=== PATIENT | male | born 1995 | race Caucasian/White ===

== ENCOUNTER 2017-06-09 11:49 | Emergency (ER) | payer MEDICAID ==
[2017-06-09] MEDS ORDERED: HALOPERIDOL LACT 5 MG/ML INJ IVP ONE (12:00)
[2017-06-09] MEDS ORDERED: HALOPERIDOL LACT 5 MG/ML INJ ONE (12:00)
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
[2017-06-09 12:11] LABS: PLATELET COUNT 387 10^3/uL (150-400)
[2017-06-09 12:28] LABS: CREATINE KINASE 272 IU/L (0-224)
[2017-06-09] MEDS ORDERED: NS 1,000 ML IV ONE (13:14)
[2017-06-09] MEDS ORDERED: diphenhydrAMINE 50 MG CAP PO ONE (23:47)
[2017-06-09] MEDS ORDERED: diphenhydrAMINE 25 MG CAP PO ONE (23:49)
[2017-06-10] MEDS ORDERED: LORazepam 1 MG TAB PO ONE (02:24)
[2017-06-10 09:35] VITALS: BP 130/53
== END 2017-06-10 09:34 | disposition home or self-care (01) ==
DX: R45.851 Suicidal ideations (principal); F32.2 Major depressive disorder, single episode, severe without psychotic features; G82.20 Paraplegia, unspecified; T83.510A Infection and inflammatory reaction due to cystostomy catheter, initial encounter; Y73.2 Prosthetic and other implants, materials and accessory gastroenterology and urology devices associated with adverse incidents
CPT/HCPCS: 80305; 96374; G0480; J1630

== ENCOUNTER 2018-04-04 15:57 | Inpatient (IN) | payer MEDICAID, OTHER ==
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
[2018-04-04] MEDS ORDERED: TDAP ADULT 0.5 ML INJ (BOOSTRIX) IM ONE (17:29)
[2018-04-04 17:59] LABS: PLATELET COUNT 392 10^3/uL (150-400)
[2018-04-04] MEDS ORDERED: ceFAZolin 2 GM/DEXTROSE 100 ML IV ONE (18:11)
[2018-04-04] MEDS ORDERED: HYDROCODONE/APAP 5/325 TAB PO PRN (18:40)
[2018-04-04] MEDS ORDERED: IBUPROFEN 200 MG TAB PO PRN (18:40)
[2018-04-04] MEDS ORDERED: ACETAMINOPHEN 325 MG TAB PO PRN (18:40)
[2018-04-04] MEDS ORDERED: ONDANSETRON DISINTEGRATING 4 MG TAB PO PRN (18:40)
[2018-04-04] MEDS ORDERED: HYDROmorphONE/DILAUDID 1 MG/ML INJ IVP PRN (18:40)
[2018-04-04] MEDS ORDERED: ONDANSETRON 4 MG/2 ML VIAL IVP PRN (18:40)
[2018-04-04] MEDS ORDERED: NS 1,000 ML IV SCH (18:45)
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
[2018-04-04] MEDS ORDERED: POLYETHYLENE GLYCOL 3350 17 GM PKT PO PRN (19:57)
[2018-04-04] MEDS ORDERED: SENNOSIDES/DOCUSATE SODIUM TAB PO PRN (19:57)
[2018-04-04] MEDS: BACLOFEN 10 MG TAB PO SCH (21:59)
[2018-04-05] MEDS: ceFAZolin 2 GM/DEXTROSE 100 ML IV SCH ×3 (02:36→18:37)
[2018-04-05 05:57] LABS: PLATELET COUNT 465 10^3/uL (150-400)
--- NOTE | 2018-04-05 11:18 | ASMTCMCOM ---
CM Note CM Note Notes: 04/05/2018 Case Management Note Pt admitted for toe ischemia and cellulitis. Met w/pt to discuss discharge needs. Per pt, pt resides at [facility]. Faxed updates via [employer]. Provided Ombudsman information at pt request. Referred to [facility]. Left VM for Heather Mattson [facility] for behavioral health needs as well as PCP. Pt lists Aunt Christine as primary contact [phone]. Pt father Gustavo Hanson [phone] is involved in cares as well. Case Management d/c poc: return to [facility] Case Management to follow. Date Signed: 04/05/2018 11:17 AM Electronically Signed By:Carol Ann Fritz RN
[2018-04-05] MEDS: OXYBUTYNIN 5 MG EXT REL TAB PO SCH (11:19)
[2018-04-05] MEDS: FERROUS SULFATE 325 MG TAB PO SCH (11:20)
[2018-04-05] MEDS: BACLOFEN 10 MG TAB PO SCH ×2 (11:20→20:13)
[2018-04-05] MEDS: ENOXAPARIN 40 MG/0.4 ML SYR SC SCH (11:21)
--- NOTE | 2018-04-05 11:22 | HOSPPROG ---
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 Whether not he truly had cellulitis of the foot or this is just inflammatory erythema related to his severe pressure injury is uncertain but is reasonable to continue antibiotics for the moment. However his foot is not covered with any dressing and he has quite a bit of open full-thickness skin desquamation and has high risk for developing infection if it is not already there. Have talked to nurses about covering his foot, have talked to patient about trying to hold his foot in positions where will not have further friction and pressure injury, and have asked nurse to try and have wound care nurse see him today sooner rather than later He initially presented with some mild intermittent tachycardia which is better after hydration. Hemoglobin has decreased from 15-10.7 overnight which could possibly be partly from hydration with no signs of bleeding. However will ask for blood smear and do test to make sure no signs of hemolysis. PLANS: * Wound care and prevention measures * Continue empiric antibiotics for possible cellulitis at this time * Of reviewed with the patient the think will probably lose at least toes 4 and 5 * Will review with surgery and wound care nursing SUBJECTIVE: No pain at foot due to his paraplegia injury No fever symptoms Eating and drinking well OBJECTIVE Vitals reviewed: No fevers here so far; blood pressures lower here today I do not think are due to sepsis likely more orthostatic as he is sitting up at the moment this is probably chronic from his spine injury; note that pulse has improved overnight Exam: alert oriented skin warm dry color ok resps not labored lungs clear BSs heart regular abd soft nondistended nontender, bowel sounds present limbs right foot with black toes 4 and 5, and significant blistering involving the plantar aspect of foot over the MTP joints and he has desquamated toes 4 and 5 and dorsal aspect of toes 3. There is mild erythema surrounding the blistering area for about 1 cm but no cellulitis extending beyond that. No fluctuance iv site ok Lab data: White blood cell count improved though he is notably more anemic today, normocytic, uncertain of chronicity of the anemia Imaging: I have reviewed the x-rays of his foot and agree that there is no evidence of fracture or osteomyelitis or other skeletal abnormality Objective: Vital Signs Temp Pulse Resp BP Pulse Ox 36.8 C 89 16 87/47 L 96 04/05/18 08:12 04/05/18 08:12 04/05/18 08:12 04/05/18 08:12 04/05/18 08:12 Laboratory Results 04/05/18 05:10 04/04/18 04/05/18 04/06/18 06:59 06:59 06:59 Intake Total 600 Output Total 900 Balance -300 - Time Spent With Patient Time Spent with Patient: greater than 35 minutes Time Spent with Patient: Greater than 35 minutes spent on this patients care, greater than 50% of time spent counseling, educating, and coordinating care regarding the above mentioned plan. ICD10 Worksheet Patient Problems: Problems Problem Status Onset Cellulitis of toe of right foot Acute Ischemic toe Acute Pressure injury of deep tissue of toe of right foot Acute
--- NOTE | 2018-04-05 13:01 | PDMN ---
Medical Necessity Medical [place] [facility] [place] Cellulitis A-2 days; 22 yo paraplegic w/ cellulitis to R foot and toes: 4&5 w/ necrosis/black toes which pt will probably lose per MD. Potential for amputation but pt not considering right now. Wound care and surgical consults, IV antibx started. Anticipate>2MN for wound care, parenteral antibx, potential for surgery. Meets [facility] [place] criteria for cellulitis w/ necrosis.
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
--- NOTE | 2018-04-05 16:21 | WOCRNPDOC ---
PATRICE Advanced Assessment Note - Skin Integrity Problem, Advanced Assess Right Lower Back Pressure Injury Dressing Type: Allevyn Life Dressing Description: Clean/Dry, Intact Exudate Amount: Scant Exudate Characteristic(s): Serosanguinous Integumentary Issue Intervention: Visualized Under Dressing Mari Wound Tissue: Erythema, Non-blanching, Scarred Wound Bed Color: Red Wound Bed Constitution: Granulation Tissue (100% in both) Wound Edges: Epithelizing, Attached Site Measurement - Head-to-Toe Length X Width X Depth (cm): x 2 wounds, lateral : 0.5x0.5x0.1, medial: 2x1.2x0.1 Pressure Injury Stage: Stage 3 Pressure Injury Present on Admit: Yes Skin Integrity Problem Comment: Per patient report all of this back wounds are from when he stayed up all night playing video games. When conversing with the patient it is not clear if he is always engaged in the conversation. He will often stare when being spoke to or suddenly stop talking and need to be re- oriented/re-directed. Patient seems to be well versed in how to prevent pressure injuries, however he doesnt apply his knowledge and take care of himself. Right Buttock Pressure Injury Dressing Type: Open to Air Site Measurement - Head-to-Toe Length X Width X Depth (cm): 0.8x10x0 Pressure Injury Stage: Stage 1, Final Finisher Forging Dies Related Pressure Injury (cleary) Pressure Injury Present on Admit: No Skin Integrity Problem Comment: Patient is very mobile and is constantly shifting and moving items in his bed. He moves the suprapubic catheter tubing around independently. Wound RN pointed out that he had placed the tubing underneath his buttock which is why he had developed the pressure injury. Patient was encouraged to be more aware and careful. Right Greater Trochanter Pressure Injury Dressing Type: Open to Air Wound Bed Constitution: Healed Pressure Injury Stage: Stage 3 Pressure Injury Present on Admit: Yes Right Anterior Ankle Pressure Injury Dressing Type: Open to Air Exudate Amount: None Mari Wound Tissue: Blanching, Erythema Wound Bed Constitution: Granulation Tissue (50%), Red/[place] - Non Granular Tissue (50%) Wound Edges: Epithelizing, Attached Site Measurement - Head-to-Toe Length X Width X Depth (cm): 0.8x0.7x0.1 Pressure Injury Stage: Stage 3 Pressure Injury Present on Admit: Yes Right Dorsal Foot Pressure Injury Dressing Type: Open to Air Exudate Amount: None Site Measurement - Head-to-Toe Length X Width X Depth (cm): x2 wounds: 0.5x0.5x0.1 (both) Pressure Injury Stage: Stage 3 Pressure Injury Present on Admit: Yes Right 4th, 5th Toes Dressing Type: Open to Air Exudate Amount: Minimal Exudate Characteristic(s): Serosanguinous Mari Wound Tissue: Erythema Wound Bed Color: Black, Purple Wound Bed Constitution: Unstable Eschar Wound Edges: Not Attached Pressure Injury Stage: Deep Tissue Injury (DTI) Pressure Injury Present on Admit: Yes Skin Integrity Problem Comment: Both phalanges to 5th metatarsal head are necrotic. The tissue is still evolving and necrosing. Both toes will be painted with betadine to reduce chance of infection. The toes will likely need amputation. Will try to keep the area between the toes as dry as possible to reduce chance of gangrene. Discussed concerns and high likelyhood of infection with patient. An area of concern is the ball of the right foot which is an extension of the wound on his toes. It is a partially deroofed full thickness blister with fat exposed. This area has a very high likely baez of infection. Patient did not seem concerned about the possiblity of infection, and reports that he often drags this foot across the floor and he doesnt have any toe nails because of that. Wound care will follow. If patient would tolerate offloading boots to his feet these would be helpful to protect the toes from further damage. When he moves the patient tends to grab his feet and ankles and slide them over the bed and underhimself to reposition. He frequently sits cross legged which puts quite a bit of pressure on this area. Right Third Toe Pressure Injury Dressing Type: Open to Air Exudate Amount: Minimal Exudate Characteristic(s): Serosanguinous Mari Wound Tissue: Erythema Wound Bed Constitution: Smooth Tissue, Red/[place] - Non Granular Tissue, Mixed Loose & Adhered Slough/Eschar (0.7x0.4) Site Measurement - Head-to-Toe Length X Width X Depth (cm): Entire phalange Pressure Injury Stage: Deep Tissue Injury (DTI) Pressure Injury Present on Admit: Yes Skin Integrity Problem Comment: Evolving wound. Right lateral and dorsal toe has desquamated. There is a small area of necrosis on the dorsal toe, the rest of the open area has clean non granular tissue. The distal toe is an intact blister. Will also treat this area with betadine for now to streamline wound care plan and will adjust as needed. Left Flank Dressing Type: Allevyn Life Dressing Description: Clean/Dry, Intact Exudate Amount: Scant Exudate Characteristic(s): Serosanguinous Integumentary Issue Intervention: Visualized Under Dressing Wound Bed Constitution: Granulation Tissue (20%), Adhered Slough (80%) Site Measurement - Head-to-Toe Length X Width X Depth (cm): 0.9x0.7x0.1 Skin Integrity Problem Comment: unknown etiology. No bony prominence involved. Left Lower Lateral Back Pressure Injury Dressing Type: Allevyn Life Dressing Description: Clean/Dry, Intact Exudate Amount: Scant Exudate Characteristic(s): Serosanguinous Integumentary Issue Intervention: Visualized Under Dressing Amri Wound Tissue: Erythema, Scarred Wound Bed Constitution: Granulation Tissue, Red/[place] - Non Granular Tissue, Adhered Slough (30% on average between the 5 wounds) Wound Edges: Epithelizing, Attached Site Measurement - Head-to-Toe Length X Width X Depth (cm): total wound area: 13x4.8, x 5 wounds within that area, the largest is: 3.8x3.7x0.1, smallest: 0.8x1.2x0.1 Pressure Injury Stage: Stage 3 Pressure Injury Present on Admit: Yes Skin Integrity Problem Comment: Per patient report these happened when he stayed up all night playing video games. Coccyx Dressing Type: Allevyn Life Dressing Description: Clean/Dry, Intact Exudate Amount: None Integumentary Issue Intervention: Visualized Under Dressing Mari Wound Tissue: Macerated (around 12 oclock minimal ), Scarred Wound Bed Constitution: Granulation Tissue (100%), Undermining (9-5 oclock 3.2 cm deepest at 12 oclock) Wound Edges: Not Attached, Epibole, Scarred, Thick Site Measurement - Head-to-Toe Length X Width X Depth (cm): 3.7x6.4x1.9 Pressure Injury Stage: Stage 4 Pressure Injury Present on Admit: Yes Skin Integrity Problem Comment: Chronic wound that has not been healing. Wound could potentially be closed by Dr. Cano at [facility] in [place], but it is unknown if patient would qualify. Also patient smokes cigarettes, however patient would be amenable to quitting if that would help close his wound. Wound care will follow. Left Hip Dressing Type: Allevyn Life Integumentary Issue Intervention: Visualized Under Dressing Mari Wound Tissue: Scarred, Hypertrophic Wound Bed Constitution: Draining Serous Blister Site Measurement - Head-to-Toe Length X Width X Depth (cm): 2.3xx9.3 is the total scarred area, open area is: 1.9x3.3x0.1 Skin Integrity Problem Comment: Unclear etiology. Patient reports that this area "gets knocked a lot" and that it is like another elbow to him. The skin is rough and calloused and per his report had a blister recently. May have both a pressure and a friction component, but it is unclear. Left Lateral Ankle Pressure Injury Dressing Type: Open to Air Mari Wound Tissue: Scarred ([id number]) Wound Bed Constitution: Healed Pressure Injury Stage: Stage 3 Pressure Injury Present on Admit: Yes Left Dorsal Foot Pressure Injury Dressing Type: Open to Air Wound Bed Constitution: Healed Site Measurement - Head-to-Toe Length X Width X Depth (cm): 1x1x0 Pressure Injury Stage: Stage 2
[2018-04-06] MEDS ORDERED: LORazepam 1 MG TAB PO ONE (00:01)
[2018-04-06] MEDS: ceFAZolin 2 GM/DEXTROSE 100 ML IV SCH (01:42)
--- NOTE | 2018-04-06 09:09 | HOSPPROG ---
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 History of MRSA present in a urine culture May 2017 so is on contact isolation here tachycardia: resolved proph: lmwh Subjective: case d/w dr bearden Objective: Vital Signs Temp Pulse Resp BP Pulse Ox 37.1 C 78 20 84/58 L 96 04/06/18 04:00 04/06/18 04:00 04/06/18 04:00 04/06/18 04:00 04/06/18 04:00 Laboratory Results 04/05/18 05:10 04/05/18 04/06/18 04/07/18 05:59 05:59 05:59 Intake Total 600 Output Total 900 1200 Balance -300 -1200 - Physical Exam Constitutional: no apparent distress, appears nourished Eyes: PERRL, anicteric sclera Ears, Nose, Mouth, Throat: moist mucous membranes, hearing normal Cardiovascular: regular rate and rhythym, no murmur, rub, or gallop Respiratory: no respiratory distress, no rales or rhonchi Gastrointestinal: normoactive bowel sounds, soft, non-tender abdomen Genitourinary: no bladder fullness, No cleary in urethra Skin: warm, other (multiple pressure injuries POA) Musculoskeletal: other (R 4th and 5th toes necrotic) Neurologic: AAOx3, numbness Psychiatric: interacting appropriately ICD10 Worksheet Patient Problems: Problems Problem Status Onset Cellulitis of toe of right foot Acute Ischemic toe Acute Pressure injury of deep tissue of toe of right foot Acute
[2018-04-06] MEDS: VANCOMYCIN HCL/NORMAL SALINE 250 ML IV SCH ×2 (09:56→21:30)
[2018-04-06] MEDS: FERROUS SULFATE 325 MG TAB PO SCH (09:57)
[2018-04-06] MEDS: BACLOFEN 10 MG TAB PO SCH ×2 (09:57→21:30)
[2018-04-06] MEDS: OXYBUTYNIN 5 MG EXT REL TAB PO SCH (09:57)
[2018-04-06] MEDS: ENOXAPARIN 40 MG/0.4 ML SYR SC SCH (09:57)
--- NOTE | 2018-04-06 10:43 | PDCONSULT ---
Stakes Player Note: Ren is resting comfortably. He is agreeable to allow surgical debridement of his coccygeal decubitus, but does not want R 4th/5th toe amputation at this time. I will schedule time in the OR tomorrow and obtain informed consent prior to surgery.
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
--- NOTE | 2018-04-06 14:10 | ASMTCMCOM ---
CM Note CM Note Notes: 04/06/2018 Case Management Note Per wound care note, discussed case with [facility]. [phone]. Per Valentino, all Medicaid beds are full at [facility] with a months long wait list. Valentino recommended [facility] in [place] however pt plastic surgery needs are not available at [facility]. Case Management d/c poc: return to [place]. Case Management to follow. Date Signed: 04/06/2018 02:09 PM Electronically Signed By:Carol Ann Fritz RN
[2018-04-06] MEDS: LORazepam 1 MG TAB PO PRN (22:50)
[2018-04-07] MEDS: FERROUS SULFATE 325 MG TAB PO SCH (09:39)
[2018-04-07] MEDS: OXYBUTYNIN 5 MG EXT REL TAB PO SCH (09:39)
[2018-04-07] MEDS: BACLOFEN 10 MG TAB PO SCH ×2 (09:39→22:34)
[2018-04-07] MEDS: VANCOMYCIN 1.25 GM in NS 250 ML IV SCH ×2 (11:19→22:35)
[2018-04-07] MEDS: VANCOMYCIN HCL/NORMAL SALINE 250 ML IV SCH (11:53)
[2018-04-07] MEDS ORDERED: LR 1,000 ML IV ONE (14:18)
--- NOTE | 2018-04-07 14:20 | PDANEPAE ---
ANE History of Present Illness Sacral decubitus ANE Past Medical History - Cardiovascular History Hx Hypertension: No Hx Arrhythmias: No - Pulmonary History Hx COPD: No Hx Asthma/Reactive Airway Disease: No Hx Oxygen in Use at Home: No Hx Sleep Apnea: No Sleep Apnea Screening Result - Last Documented: Negative - Endocrine History Hx Diabetes: No - Neurological & Psychiatric Hx Neurological / Psychiatric History Comment: Parapalegic - Chronic Pain History Chronic Pain: No ANE Review of Systems Review of Systems: ANE Patient History - Allergies Allergies/Adverse Reactions: No Known Allergies Allergy (Unverified 06/09/17 12:28) - Home Medications Home medications: home medication list seen and reviewed Home Medications: Acetaminophen [Tylenol 325mg (*)] 650 mg PO Q6 PRN 04/04/18 [Last Taken Unknown] Baclofen [Baclofen 10 mg (*)] 10 mg PO BID 04/04/18 [Last Taken Unknown] Cholecalciferol Vit D3 [Vitamin D3 (*)] 50,000 unit PO Q7D 04/04/18 [Last Taken Unknown] Ferrous Sulfate [Ferrous Sulf 325 MG (*)] 325 mg PO DAILY 04/04/18 [Last Taken Unknown] Herbals/Supplements -Info Only 1 ea PO DAILY 04/04/18 [Last Taken Unknown] Multivitamins [Multivitamin (*)] 1 each PO DAILY 04/04/18 [Last Taken Unknown] Oxybutynin Chloride [Ditropan Xl] 10 mg PO DAILY 04/04/18 [Last Taken Unknown] Polyethylene Glycol 3350 [Miralax 17 gm (*)] 17 gm PO DAILY PRN 04/04/18 [Last Taken Unknown] Sennosides/Docusate Sodium [Senokot-S (OTC)] 1 each PO DAILY PRN 04/04/18 [Last Taken Unknown] - NPO status NPO Status: no food or drink >8 hours NPO Since - Liquids (Date): 04/07/18 NPO Since - Liquids (Time): 00:01 NPO Since - Solids (Date): 04/07/18 NPO Since - Solids (Time): 00:01 - Smoking Hx Smoking Status: Current some day smoker ANE Labs/Vital Signs - Labs Result Diagrams: 04/05/18 05:10 04/04/18 16:20 - Vital Signs Blood Pressure: 126/82 Heart Rate: 56 Respiratory Rate: 16 O2 Sat (%): 97 Height: 187.96 cm Weight: 58.967 kg ANE Physical Exam - Airway Neck exam: FROM Mallampati Score: Class 2 Mouth exam: normal dental/mouth exam - Pulmonary Pulmonary: no respiratory distress - Cardiovascular Cardiovascular: regular rate and rhythym - ASA Status ASA Status: III ANE Anesthesia Plan Anesthesia Plan: general endotracheal anesthesia
[2018-04-07] MEDS ORDERED: MIDAZOLAM 2 MG/2 ML VIAL IVP ONE (14:25)
[2018-04-07] MEDS ORDERED: PROPOFOL 200 MG/20 ML VIAL ONE (14:31)
[2018-04-07] MEDS ORDERED: fentaNYL 100 MCG/2 ML INJ ONE (14:31)
[2018-04-07] MEDS ORDERED: DEXAMETHASONE 4 MG/ML VIAL ONE (14:49)
[2018-04-07] MEDS ORDERED: HYDROmorphONE/DILAUDID 2 MG/ML INJ IVP PRN (15:12)
[2018-04-07] MEDS ORDERED: fentaNYL 100 MCG/2 ML INJ IVP PRN (15:12)
[2018-04-07] MEDS ORDERED: ONDANSETRON 4 MG/2 ML VIAL IVP PRN (15:12)
[2018-04-07] MEDS ORDERED: NALOXONE HCL 0.4 MG/ML INJ IVP PRN (15:12)
[2018-04-07] MEDS ORDERED: BACITRACIN ZINC 0.5 OZ OINTTUBE TP ONE (15:15)
--- NOTE | 2018-04-07 15:15 | HOSPPROG ---
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 History of MRSA present in a urine culture May 2017 so is on contact isolation here tachycardia: resolved proph: lmwh Subjective: patient in OR, unable to be seen by me today Objective: Vital Signs Temp Pulse Resp BP Pulse Ox 37.0 C 56 L 16 126/82 H 97 04/07/18 14:12 04/07/18 14:27 04/07/18 14:27 04/07/18 14:27 04/07/18 14:27 Laboratory Results 04/05/18 05:10 04/06/18 04/07/18 04/08/18 05:59 05:59 05:59 Output Total 1200 950 Balance -1200 -950 ICD10 Worksheet Patient Problems: Problems Problem Status Onset Cellulitis of toe of right foot Acute Ischemic toe Acute Pressure injury of deep tissue of toe of right foot Acute
--- NOTE | 2018-04-07 15:42 | ASMTCMCOM ---
CM Note CM Note Notes: 04/07/2018 Case Management Note Pt to the OR today. Faxed updates to [facility]. Confirmed acceptance with [employer]. [employer] Medicaid application is completed by Francoise Bourne. [facility] waiting to hear from replaced by [facility]. This will not effect d/c plan. Case Management d/c poc: return to [facility]. Case Management to follow. Date Signed: 04/07/2018 03:41 PM Electronically Signed By:Carol Ann Fritz RN
--- NOTE | 2018-04-07 15:44 | POSTOPPROG ---
Post Op Note Date of Operation: 04/07/18 Surgeon: Ace Valdovinos (, FACS) Pantomimist: LUIZA Carmona-III Anesthesiologist: Reuben Farooq MD Anesthesia: GET(General Endotracheal) Pre-op Diagnosis: right 4th/5th toe gangrene, stage IV sacral ulcer Post-op Diagnosis: right 4th/5th toe gangrene, stage III sacral ulcer Procedure: debridement of stage III sacral ulcer with partial closure Findings: refused permission to proceed with amputation Inf/Abcess present in the surg proc area at time of surgery?: No Depth: Deep Incisional (Fascial) EBL: Minimal
--- NOTE | 2018-04-07 15:44 | POSTANESTH ---
Post Anesthetic Evaluation Cardiovascular Status: Similar to Pre-Op Cond Respiratory Status: Similar to Pre-op Cond. Level of Consciousness/Mental Status: Alert and Oriented Pain Control: Adequate, Prn Tx Ordered Nausea/Vomiting Control: Adequate, Prn Tx Ordered Complications Possibly Related to Anesthesia: None Noted
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
[2018-04-07] MEDS: LORazepam 1 MG TAB PO PRN (22:34)
[2018-04-08] MEDS: OXYBUTYNIN 5 MG EXT REL TAB PO SCH (09:29)
[2018-04-08] MEDS: BACLOFEN 10 MG TAB PO SCH ×2 (09:30→20:46)
[2018-04-08] MEDS: FERROUS SULFATE 325 MG TAB PO SCH (09:30)
[2018-04-08] MEDS: ENOXAPARIN 40 MG/0.4 ML SYR SC SCH (09:30)
--- NOTE | 2018-04-08 11:31 | HOSPPROG ---
Hospitalist Progress Note Assessment/Plan: 18 yo M w paraplegia here w necrotic right 4th and 5th toes and multiple pressure sores. #Right foot 4th and 5th necrotic toes: C/w dry gangrene - Recommend surgical amputation - he refuses - Continues to remove IV, not wanting IV antibiotics - He is agreeable to PO antibiotics. Will start doxycycline 100mg BID (h/o mrsa) #Coccygeal decubitus ulcer: POA - S/p debridement with Dr Valdovinos 04/07 - Wound care #Multiple pressure sores on back, hips, legs: POA - Wound care #Paraplegia from prior spine injury - Baclofen #Neurogenic bladder: with chronic suprapubic catheter #Neurogenic bowel #H/o MRSA: urine cultre from 05/2017 - Isolation precautions VTE ppx: LMWH Code: full Dispo: Remain inpatient. Lives at [facility] Subjective: Per RN, keeps removing IV, slightly agitated. Pain ok. Objective: Vital Signs Temp Pulse Resp BP Pulse Ox 36.8 C 90 16 90/52 L 96 04/08/18 07:43 04/08/18 07:43 04/08/18 07:43 04/08/18 07:43 04/08/18 07:43 Laboratory Results 04/05/18 05:10 04/07/18 04/08/18 04/09/18 05:59 05:59 05:59 Intake Total 960 Output Total 950 1450 Balance -950 -490 - Physical Exam Constitutional: no apparent distress, cachectic Eyes: PERRL Ears, Nose, Mouth, Throat: moist mucous membranes Cardiovascular: regular rate and rhythym, No edema Respiratory: no respiratory distress Genitourinary: other (SPC in place) Skin: warm, other (multiple wounds are covered) Musculoskeletal: other (paretic below waist) Neurologic: AAOx3 Psychiatric: interacting appropriately ICD10 Worksheet Patient Problems: Problems Problem Status Onset Cellulitis of toe of right foot Acute Ischemic toe Acute Pressure injury of deep tissue of toe of right foot Acute
[2018-04-08] MEDS: VANCOMYCIN 1.25 GM in NS 250 ML IV SCH (13:28)
[2018-04-08] MEDS: DOXYCYCLINE HYCLATE 100 MG CAP/TAB PO SCH (20:46)
[2018-04-09] MEDS: FERROUS SULFATE 325 MG TAB PO SCH (09:43)
[2018-04-09] MEDS: BACLOFEN 10 MG TAB PO SCH (09:44)
[2018-04-09] MEDS: ENOXAPARIN 40 MG/0.4 ML SYR SC SCH (09:44)
[2018-04-09] MEDS: OXYBUTYNIN 5 MG EXT REL TAB PO SCH (09:44)
[2018-04-09] MEDS: DOXYCYCLINE HYCLATE 100 MG CAP/TAB PO SCH (09:44)
--- NOTE | 2018-04-09 15:06 | ASMTLACE ---
[facility] Length of stay for Answers: 4-6 days current admission Acuity / Level of Answers: Yes Care: Did the patient have an inpatient admission? Comorbidities - select Answers: Opioid dependence all that apply / Chronic pain Other Notes: Hx of TBI # of Emergency department Answers: 1-2 visits in the last 6 months Social determinants Answers: Homelessness (street, detention) Mental health diagnosis (anxiety, depression, pers onality disorders, etc.) Score: 19 Date Signed: 04/09/2018 03:06 PM Electronically Signed By:Aurora Mccloud RN
--- NOTE | 2018-04-09 15:08 | ASMTDCNOTE ---
Case Management Discharge Discharge Order Complete? Answers: Yes Patient to Obtain Answers: Other Notes: [facility] Medications Transportation Arranged Answers: [facility] Stretcher Faxed Final Orders Answers: Yes Discharge Comments Notes: Patient discharged back to [facility]. [facility] stretcher transport; Medicaid number provided. WANDER Marcano to call report. Date Signed: 04/09/2018 03:07 PM Electronically Signed By:Aurora Mccloud RN
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
--- NOTE | 2018-04-09 15:13 | PDIAF ---
- Diagnosis Code Status: Full Code - Medication Management Additional Medication Instructions: Started doxycycline 100mg BID indefinitely. Discharge Medications: electronically signed and located in the Home Medication List. PICC Care - Routine: N/A - Orders Services needed: Registered Nurse Isolation Type: Contact Isolation Diet Recommendation: no restrictions on diet Lima: Yes (Suprapubic) Additional Instructions: Continue to take doxycycline 100mg twice daily until you follow up with the surgeons. I have put a referral for Dr Valdovinos (surgery) on your discharge paperwork. I recommend calling his office early this week to set up an appointment to address your necrotic toes. - Follow Up Care Current Providers and Referrals: Ace Valdovinos MD [Medical Doctor] - follow up in 1 week
[2018-04-09 16:37] VITALS: BP 103/74
--- NOTE | 2018-04-12 17:04 | PQFORM ---
PHYSICIAN QUERY FORM Needs Your Response This query form is being sent to you to assure this patient record is coded properly. Please respond to the question below: BULK FOLDER QUESTION: Dear Dr. Valdovinos, For coding purposes (there is a different code choice for excisional versus non excisional debridement)- please clarify if the debridement done on 07 Apr 2018 was: _x__~ Excisional ___~ Non Excisional ___~ Other Thank You Savannah Austin, RAMYA HIM/Coding Dept. INSTRUCTIONS FOR RESPONSE: Answer question by clicking on the "Edit Document" button. Move cursor to area below the stars. When complete, hit "Save." Click on the "Sign" button, then click "Sign" again. Type in your PIN and hit "Enter." MTDD
== END 2018-04-09 17:01 | DRG 197 ==
LOC: EDUNIT# → F3E 20:27
PROVIDERS: ADMIT Internal Medicine; ATTEND Internal Medicine
PROC: 0HB6XZZ Excision of Back Skin, External Approach (ICD-10-PCS; principal; 2018-04-07 14:30)
DX: I96 Gangrene, not elsewhere classified (principal); L89.153 Pressure ulcer of sacral region, stage 3; L89.133 Pressure ulcer of right lower back, stage 3; L89.213 Pressure ulcer of right hip, stage 3; L89.513 Pressure ulcer of right ankle, stage 3; L89.893 Pressure ulcer of other site, stage 3; L89.143 Pressure ulcer of left lower back, stage 3; L89.154 Pressure ulcer of sacral region, stage 4; L89.523 Pressure ulcer of left ankle, stage 3; G82.20 Paraplegia, unspecified; K59.2 Neurogenic bowel, not elsewhere classified; L03.031 Cellulitis of right toe; L89.319 Pressure ulcer of right buttock, unspecified stage; L89.892 Pressure ulcer of other site, stage 2; N31.9 Neuromuscular dysfunction of bladder, unspecified; F32.9 Major depressive disorder, single episode, unspecified; Z59.0 Homelessness
CPT/HCPCS: 96374; 97165-GO; J0690; J1100; J1650; J2250; J2704; J3010; J3370

== ENCOUNTER → 2018-05-29 | Outpatient (CLI) | payer MEDICAID | LOC: BMCIMAGING 10:44 → EDSTATUS 12:09 | PROVIDERS: ATTEND Podiatrist Foot & Ankle Surgery | DX: S91.301A Unspecified open wound, right foot, initial encounter (principal); Z89.421 Acquired absence of other right toe(s) ==

== ENCOUNTER 2018-06-13 11:21 | Emergency (ER) | payer MEDICAID ==
[2018-06-13 12:27] LABS: PLATELET COUNT 362 10^3/uL (150-400)
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
[2018-06-13] MEDS ORDERED: NICOTINE 21 MG/24 HR PATCH TD ONE (16:35)
[2018-06-13] MEDS ORDERED: NICOTINE POLACRILEX 2 MG GUM B PRN (16:36)
[2018-06-13] MEDS ORDERED: LORazepam 1 MG TAB PO ONE (16:37)
[2018-06-13] MEDS ORDERED: LORazepam 1 MG TAB ONE (16:38)
[2018-06-14 00:57] VITALS: BP 95/62
== END 2018-06-14 00:25 ==
LOC: EDUNIT#
DX: R45.851 Suicidal ideations (principal); G82.20 Paraplegia, unspecified
CPT/HCPCS: 80305; G0480